=== PATIENT | female | born 1995 | race African-American/Black ===

== ENCOUNTER 2021-02-11 23:23 | Emergency (ER) | payer BC, OTHER ==
[2021-02-12] MEDS ORDERED: Ondansetron PF 4 MG/2 ML Vial ONE (00:02)
[2021-02-12] MEDS ORDERED: Ketorolac Tromethamine 30 MG/ML VIAL ONE (00:03)
[2021-02-12 00:19] LABS: Bilirubin Neg (Negative); Blood, Urine Negative (Negative); Clarity Clear (Clear); Glucose, Urine (Dipstick) Normal (Negative); Ketone, Urine Negative (Negative); Leukocyte Negative (Negative); Nitrite Negative (Negative); Protein, Urine (Dipstick) Negative (Neg-Trace); Specific Gravity, Urine 1.015 (1.002-1.036); Urobilinogen Normal mg/dL (Less than 2)
[2021-02-12 00:21] LABS: Pregnancy Test - Urine (BHCG) Negative (Negative)
[2021-02-12 00:22] LABS: Pregu Control Background? CLEAR/WHITE (CLR/WHITE); Pregu Control Bar Appear? YES (CONTROL BAR); Specific Gravity 1.015 (1.002-1.036)
[2021-02-12 00:23] LABS: #Basophils 0.1 10x3/uL (0.0-0.2); #Eosinphils 0.1 10x3/uL (0.0-0.5); #Monocytes 0.5 10x3/uL (0.0-1.1); #Neutrophils 7.4 10x3/uL (1.5-8.4); %Basophils 0.6 % (0.0-2.0); %Eosinophils 0.9 % (0.0-6.0); %Lymphocytes 20.7 % (18.0-47.0); %Monocytes 4.8 % (0.0-10.0); %Neutrophils 72.7 % (40.0-75.0); Hemoglobin 12.4 g/dL (12.0-15.5); Mean Corpuscular HGB CONC 33.5 g/dL (32.0-36.0); Mean Corpuscular Volume 89.4 fl (81.6-98.3); Mean Platelet Volume 9.6 fl (7.4-10.4); Platelet Count 328 10x3/uL (150-450); RBC Distribution Width 11.9 % (11.5-14.5); Red Blood Cell (RBC) Count 4.14 10x6/uL (3.90-5.03); White Blood Cell (WBC) Count 10.2 10x3/uL (3.5-10.5)
[2021-02-12 00:38] LABS: ALT (SGPT) 34 U/L (8-55); AST (SGOT) 31 U/L (5-34); Albumin 4.1 g/dL (3.5-5.0); Alkaline Phosphatase 51 U/L (40-110); Anion Gap 12 mmol/L (10-20); BUN (Urea Nitrogen) 14 mg/dL (7.0-18.7); Bilirubin, Total 1.1 mg/dL (0.2-1.2); Calc. Creatinine Clearance 0 mL/min (70-130); Calcium 8.8 mg/dL (7.8-10.44); Carbon Dioxide 21 mmol/L (22-29); Chloride 107 mmol/L (98-107); Globulin 3.1 g/dL (2.4-3.5); Glucose 87 mg/dL (70-105); Potassium 3.7 mmol/L (3.5-5.1); Protein, Total 7.2 g/dL (6.0-8.3); Sodium 136 mmol/L (136-145)
== END 2021-02-12 01:18 | disposition home or self-care (01) ==
LOC: CSHERS 23:23
DX: N83.201 Unspecified ovarian cyst, right side (principal)
CPT/HCPCS: 76856; 80053; 81003; 81025; 85025; 96374; 96375; J1885; J2405

== ENCOUNTER 2022-08-26 09:44 | Day surgery (SDC) | payer BC, OTHER ==
[2022-08-26 10:20] VITALS: BMI 27.1
[2022-08-26] MEDS ORDERED: hydrALAZINE 20 MG/ML VIAL SLOW IVP PRN (11:34)
== END 2022-08-26 11:48 | disposition home or self-care (01) ==
LOC: CSHLD/OP 09:44
PROVIDERS: ATTEND Obstetrics & Gynecology
DX: O60.03 Preterm labor without delivery, third trimester (principal); Z3A.36 36 weeks gestation of pregnancy; O26.893 Other specified pregnancy related conditions, third trimester; M79.18 Myalgia, other site; Z79.899 Other long term (current) drug therapy; Z98.890 Other specified postprocedural states
CPT/HCPCS: 99282

== ENCOUNTER 2022-10-04 10:06 | Inpatient (IN) | payer OTHER ==
[2022-10-04] MEDS ORDERED: Lidocaine 1% (PF) 30 ML VIAL SC PRN (10:46)
[2022-10-04] MEDS ORDERED: HYDROcodone/Acetaminophen 5/325 mg Tablet PO PRN ×2 (10:46)
[2022-10-04] MEDS ORDERED: Misoprostol 200 MCG TAB PR PRN ×2 (10:46→21:53)
[2022-10-04] MEDS ORDERED: Butorphanol Tartrate 1 MG/ML VIAL SLOW IVP PRN (10:46)
[2022-10-04] MEDS ORDERED: Methylergonovine 0.2 MG/ML VIAL IM PRN ×2 (10:46→21:53)
[2022-10-04] MEDS ORDERED: Promethazine HCl 25 MG/ML VIAL IM PRN ×2 (10:46→18:05)
[2022-10-04] MEDS ORDERED: hydrALAZINE 20 MG/ML VIAL SLOW IVP PRN ×2 (10:46→21:53)
[2022-10-04] MEDS ORDERED: Ondansetron PF 4 MG/2 ML Vial IVP PRN ×2 (10:46→18:05)
[2022-10-04] MEDS ORDERED: Ibuprofen 800 MG TAB PO PRN (10:46)
[2022-10-04 10:57] VITALS: BMI 27.8
[2022-10-04] MEDS ORDERED: NS w/ Oxytocin 30 units 500 ML IV SCH ×3 (11:00→21:53)
[2022-10-04 11:45] LABS: Hemoglobin 10.3 g/dL (12.0-15.5); Mean Corpuscular HGB CONC 33.4 g/dL (32.0-36.0); Mean Corpuscular Hemoglobin 28.3 pg (27.0-33.0); Mean Corpuscular Volume 84.6 fl (81.6-98.3); Mean Platelet Volume 10.9 fl (7.4-10.4); Platelet Count 200 10x3/uL (150-450); RBC Distribution Width 14.3 % (11.5-14.5); Red Blood Cell (RBC) Count 3.64 10x6/uL (3.90-5.03); White Blood Cell (WBC) Count 8.8 10x3/uL (3.5-10.5)
[2022-10-04] MEDS ORDERED: Terbutaline Sulfate 1 MG/ML VIAL SC SCH (11:45)
[2022-10-04 12:20] LABS: HBSAg Index 0.14 S/CO (0-0.99); Hep B Surf Ag Non-Reactive S/CO (NonReactive)
[2022-10-04 12:21] LABS: Syphilis Antibody Nonreactive (Nonreactive); Syphilis Antibody Index 0.04 S/CO (<1.00 Non-Reactive)
[2022-10-04] MEDS ORDERED: Mineral Oil ENEMA ONE (13:34)
[2022-10-04] MEDS: Lactated Ringer's 1,000 ML IV SCH ×3 (13:40→22:56)
[2022-10-04] MEDS ORDERED: Famotidine/PF 20 mg/2ml Vial ONE (15:57)
[2022-10-04] MEDS ORDERED: CEFAZOLIN 2 GM VIAL ONE (15:57)
[2022-10-04] MEDS ORDERED: Bicitra 30 ML UDCUP PO PRN (16:21)
[2022-10-04] MEDS ORDERED: Famotidine/PF 20 mg/2ml Vial SLOW IVP PRN (16:21)
[2022-10-04] MEDS ORDERED: CEFAZOLIN 2 GM in Sodium Chloride 0.9% 100 ML IVPB SCH (16:30)
[2022-10-04] MEDS ORDERED: Morphine PF 10 MG/10 ML VIAL ONE (16:56)
[2022-10-04] MEDS ORDERED: Fentanyl 100 MCG/2 ML VIAL ONE (16:57)
[2022-10-04 17:35] LABS: SARS-CoV-2 NAA Rapid Test Not Detected (NotDetected)
[2022-10-04] MEDS ORDERED: Fentanyl 100 MCG/2 ML VIAL SLOW IVP PRN (18:05)
[2022-10-04] MEDS ORDERED: Meperidine HCl/PF 25 MG/ML VIAL SLOW IVP PRN (18:05)
[2022-10-04] MEDS ORDERED: Moisturizing Cream (Eucerin) 113 GM JAR TOP PRN (18:05)
[2022-10-04] MEDS ORDERED: HYDROmorphone 2 MG/ML VIAL SLOW IVP PRN (18:05)
[2022-10-04] MEDS ORDERED: Naloxone HCl 0.4 mg/ml Vial IV PRN (18:05)
[2022-10-04] MEDS ORDERED: Ondansetron HCl/PF 4 MG/2 ML Vial IVP PRN (18:05)
[2022-10-04] MEDS ORDERED: Naloxone HCl 0.4 mg/ml Vial IVP PRN ×2 (18:05)
[2022-10-04] MEDS ORDERED: Promethazine HCl 25 MG SUPP PR PRN (18:05)
[2022-10-04] MEDS ORDERED: Communication Order-Pharmacy FS SCH (18:15)
[2022-10-04] MEDS ORDERED: Ketorolac Tromethamine 30 MG/ML VIAL IVP SCH (18:15)
[2022-10-04] MEDS ORDERED: Misoprostol 200 MCG TAB ONE (18:24)
[2022-10-04] MEDS ORDERED: Simethicone Chewable 80 MG TAB PO PRN (21:53)
[2022-10-04] MEDS ORDERED: Acetaminophen 325 MG TAB PO PRN (21:53)
[2022-10-04] MEDS ORDERED: Lanolin Ointment 7 GM TUBE TOP PRN (21:53)
[2022-10-04] MEDS ORDERED: Docusate 100 MG CAP PO SCH (22:15)
[2022-10-04] MEDS: diphenhydrAMINE 50 MG/ML VIAL IVP PRN (22:54)
[2022-10-04] MEDS: Ketorolac Tromethamine 30 MG/ML VIAL IVP PRN (22:58)
[2022-10-05 05:13] LABS: Hemoglobin 9.7 g/dL (12.0-15.5); Mean Corpuscular HGB CONC 33.8 g/dL (32.0-36.0); Mean Corpuscular Hemoglobin 28.4 pg (27.0-33.0); Mean Corpuscular Volume 84.2 fl (81.6-98.3); Mean Platelet Volume 10.6 fl (7.4-10.4); Platelet Count 176 10x3/uL (150-450); RBC Distribution Width 14.3 % (11.5-14.5); Red Blood Cell (RBC) Count 3.41 10x6/uL (3.90-5.03); White Blood Cell (WBC) Count 9.7 10x3/uL (3.5-10.5)
[2022-10-05] MEDS ORDERED: HYDROcodone/Acetaminophen 5/325 mg Tablet PO PRN (06:15)
[2022-10-05] MEDS: Lactated Ringer's 1,000 ML IV SCH ×2 (07:35→07:36)
[2022-10-05] MEDS: Ketorolac Tromethamine 30 MG/ML VIAL IVP PRN (08:49)
[2022-10-05] MEDS: Prenatal Vitamin 1 TAB PO SCH (08:50)
[2022-10-05] MEDS: Docusate 100 MG CAP PO SCH ×2 (08:50→21:26)
[2022-10-05] MEDS ORDERED: Boostrix 0.5 ML (Tdap) VIAL (>/=7 yrs of age) IM ONE (09:00)
[2022-10-05] MEDS: diphenhydrAMINE 50 MG/ML VIAL IVP PRN (09:35)
[2022-10-05] MEDS: HYDROcodone/Acetaminophen 5/325 mg Tablet PO PRN ×2 (18:02→23:04)
[2022-10-05] MEDS: Ibuprofen 800 MG TAB PO SCH (21:26)
[2022-10-06] MEDS: Ibuprofen 800 MG TAB PO SCH ×2 (05:29→13:26)
[2022-10-06] MEDS: Lactated Ringer's 1,000 ML IV SCH ×2 (06:07→07:16)
[2022-10-06 07:56] VITALS: BP 121/67; TEMP 98.1
[2022-10-06] MEDS: HYDROcodone/Acetaminophen 5/325 mg Tablet PO PRN ×2 (08:04→13:25)
[2022-10-06] MEDS: Docusate 100 MG CAP PO SCH (08:05)
[2022-10-06] MEDS: Prenatal Vitamin 1 TAB PO SCH (08:05)
== END 2022-10-06 14:20 | disposition home or self-care (01) | DRG 787 ==
LOC: CSHLD/OP 10:06 → CSHLD 17:45 → CSHPED 22:10
PROVIDERS: ADMIT Obstetrics & Gynecology; ATTEND Obstetrics & Gynecology
PROC: 10D00Z1 Extraction of Products of Conception, Low, Open Approach (ICD-10-PCS; principal; 2022-10-04)
PROC: 10S0XZZ Reposition Products of Conception, External Approach (ICD-10-PCS; 2022-10-04)
DX: O32.1XX0 Maternal care for breech presentation, not applicable or unspecified (principal); O99.43 Diseases of the circulatory system complicating the puerperium; Z37.0 Single live birth; Z3A.41 41 weeks gestation of pregnancy; Z79.899 Other long term (current) drug therapy; O76 Abnormality in fetal heart rate and rhythm complicating labor and delivery; O34.211 Maternal care for low transverse scar from previous cesarean delivery; I95.9 Hypotension, unspecified
CPT/HCPCS: 36415; 51702; 59412; 76815; 85027; 86780; 86850; 86900; 86901; 87340; J1200; J1885; J2274; J2310; J3010; J3105; J7120; S0028; U0002